=== PATIENT | male | born 1985 | race Caucasian/White ===

== ENCOUNTER 2024-09-28 17:20 | Inpatient (IN) | payer OTHER ==
[~2024-09-28] VITALS: Ht 188 cm; Wt 88.1 kg
[2024-09-28 19:13] LABS: BASOPHILS ABSOLUTE AUTO 0.03 K/mm3 (0.00-0.23); BASOPHILS PERCENT AUTO 1 % (0-2); EOSINOPHILS ABSOLUTE AUTO 0.25 K/mm3 (0.00-0.68); EOSINOPHILS PERCENT AUTO 9 % (0-6); Hematocrit 35.3 % (37.0-53.0); Hemoglobin 11.6 g/dL (13.5-17.5); IMMATURE GRAN ABSOLUTE AUTO 0.01 K/mm3 (0.00-0.10); IMMATURE GRAN PERCENT AUTO 0 % (0-1); LYMPHOCYTES ABSOLUTE AUTO 0.35 K/mm3 (0.84-5.20); LYMPHOCYTES PERCENT AUTO 12 % (21-46); MONOCYTES PERCENT AUTO 10 % (4-13); Mean Corpuscular HGB 27.6 pg (26.0-34.0); Mean Corpuscular HGB Conc 32.9 g/dL (31.5-36.5); Mean Corpuscular Volume 84 fL (80-100); Mean Platelet Volume 10.4 fL (9.1-12.4); NEUTROPHILS ABSOLUTE AUTO 1.98 K/mm3 (1.96-9.15); NEUTROPHILS PERCENT AUTO 68 % (41-73); Platelet Count 106 K/mm3 (150-400); RDW Coefficient Variation 15.9 % (11.7-14.2); RDW Standard Deviation 48.9 fL (35.1-46.3); White Blood Cell Count 2.92 K/mm3 (4.00-11.30)
[2024-09-28 19:35] LABS: Albumin, Blood 3.1 g/dL (3.4-5.0); Albumin/Globulin Ratio 0.7 (0.8-1.8); Bilirubin, Total 2.3 mg/dL (0.1-1.0); Bun/Creatinine Ratio 14.2 (12.0-20.0); Calcium, Blood 8.5 mg/dL (8.5-10.1); Creatinine, Blood 0.92 mg/dL (0.60-1.20); Globulin, Blood 4.4 g/dL (2.2-4.0); Total Protein, Blood 7.5 g/dL (6.4-8.2)
[2024-09-28] MEDS ORDERED: Clindamycin 900mg in D5W 50ML 50 ML IV ONE (22:35)
[2024-09-28] MEDS ORDERED: Furosemide 10 MG/ML 4ML Vial IV ONE (22:35)
[2024-09-28] MEDS ORDERED: Linezolid 600MG/Iso-Dext 300ML 300 ML IV ONE (22:45)
[2024-09-28] MEDS ORDERED: Piperacillin/Tazobactam Sod 3.375 GM in NS 100 ML IV ONE (22:45)
[2024-09-28] MEDS ORDERED: HYDROmorphone HCl/Pf 1MG SYR IV ONE (23:05)
[2024-09-28 23:46] LABS: Source, Urine Clean Catch
[2024-09-28 23:48] LABS: Bilirubin, Urine Neg (Neg); Blood, Urine Neg (Neg); Glucose Qualitative, Urine Neg (Neg); Ketones, Urine Neg (Neg); Leukocyte Esterase, Urine Neg (Neg); Nitrite, Urine Neg (Neg); Protein, Urine Neg (Neg); Urobilinogen, Urine 1+ (Normal)
[2024-09-29 00:28] LABS: Appearance, Urine Clear (Clear); Color, Urine Pale Yellow (P-Yellow)
[2024-09-29] MEDS ORDERED: Potassium Chloride 20 MEQ TabCR PO ONE (01:00)
[2024-09-29 01:30] LABS: BASOPHILS ABSOLUTE AUTO 0.03 K/mm3 (0.00-0.23); BASOPHILS PERCENT AUTO 1 % (0-2); EOSINOPHILS ABSOLUTE AUTO 0.26 K/mm3 (0.00-0.68); EOSINOPHILS PERCENT AUTO 10 % (0-6); Hematocrit 35.8 % (37.0-53.0); Hemoglobin 11.6 g/dL (13.5-17.5); IMMATURE GRAN ABSOLUTE AUTO 0.01 K/mm3 (0.00-0.10); IMMATURE GRAN PERCENT AUTO 0 % (0-1); LYMPHOCYTES ABSOLUTE AUTO 0.36 K/mm3 (0.84-5.20); LYMPHOCYTES PERCENT AUTO 14 % (21-46); MONOCYTES ABSOLUTE AUTO 0.41 K/mm3 (0.16-1.47); MONOCYTES PERCENT AUTO 16 % (4-13); Mean Corpuscular HGB 27.3 pg (26.0-34.0); Mean Corpuscular HGB Conc 32.4 g/dL (31.5-36.5); Mean Corpuscular Volume 84 fL (80-100); Mean Platelet Volume 10.1 fL (9.1-12.4); NEUTROPHILS ABSOLUTE AUTO 1.56 K/mm3 (1.96-9.15); NEUTROPHILS PERCENT AUTO 59 % (41-73); Platelet Count 100 K/mm3 (150-400); RDW Coefficient Variation 15.9 % (11.7-14.2); RDW Standard Deviation 49.2 fL (35.1-46.3); Red Blood Cell Count 4.25 M/mm3 (4.30-5.90); White Blood Cell Count 2.63 K/mm3 (4.00-11.30)
[2024-09-29 01:48] LABS: Albumin/Globulin Ratio 0.7 (0.8-1.8); Bun/Creatinine Ratio 11.9 (12.0-20.0); C-REACTIVE PROTEIN, EXT RANGE 1.06 mg/dL (0.000-0.300); Calcium, Blood 8.4 mg/dL (8.5-10.1); Creatinine, Blood 1.01 mg/dL (0.60-1.20); Globulin, Blood 4.2 g/dL (2.2-4.0); Magnesium, Blood 1.9 mg/dL (1.6-2.4); Total Protein, Blood 7.2 g/dL (6.4-8.2)
[2024-09-29] MEDS ORDERED: Piperacillin/Tazobactam Sod 3.375 GM in NS 100 ML IV SCH (06:00)
[2024-09-29] MEDS ORDERED: Furosemide 10 MG/ML 4ML Vial IV SCH (09:00)
[2024-09-29] MEDS ORDERED: Enoxaparin 40 MG/0.4 ML SYR SC SCH (09:00)
[2024-09-29] MEDS ORDERED: AMPDEX5 PO (09:24)
[2024-09-29] MEDS ORDERED: TADA10TA PO (09:25)
[2024-09-29] MEDS ORDERED: TRAZ50 PO (09:25)
[2024-09-29] MEDS ORDERED: ALDACTONE100 MG PO (09:25)
[2024-09-29] MEDS ORDERED: PANT40 PO (09:25)
[2024-09-29] MEDS ORDERED: CONSTULOSE10 GM/152 PO (09:26)
[2024-09-29] MEDS ORDERED: CARV3.125 PO (09:26)
[2024-09-29] MEDS ORDERED: GABA300 PO (09:26)
[2024-09-29] MEDS ORDERED: FURO40 PO (09:26)
[2024-09-29] MEDS ORDERED: AMIL5 PO (09:27)
[2024-09-29] MEDS ORDERED: Linezolid 600MG/Iso-Dext 300ML 300 ML IV SCH (10:30)
[2024-09-29] MEDS ORDERED: Spironolactone 50 MG Tab PO SCH (12:00)
[2024-09-29] MEDS ORDERED: AMILORIDE HCL 5 MG PO SCH (12:00)
[2024-09-29] MEDS ORDERED: HYDROcodone 5-APAP 325 TAB PO PRN (12:55)
[2024-09-29] MEDS ORDERED: CeFAZolin Sodium 2,000 MG in NS 100 ML IV SCH (14:00)
[2024-09-29 14:27] VITALS: BP 109/66
[2024-09-29 15:38] LABS: Albumin, Blood 2.8 g/dL (3.4-5.0)
[2024-09-29 15:56] VITALS: BP 93/63
[2024-09-29] MEDS ORDERED: Lactulose 20 GM/30 ML UDC PO SCH (16:00)
[2024-09-29] MEDS ORDERED: Carvedilol 3.125 MG Tab PO SCH (17:00)
--- NOTE | 2024-09-29 19:08 | NUR ---
SHIFT SUMMARY DAY NEW ER ADMIT THIS SHIFT, A&OX3, DROWSEY SINCE ASSUMING CARE FALLING ASLEEP MID SENTENCE. BP'S SOFT, PT HAS BEEN COOPERATIVE BUT BECOMES EASILY AGGITATED, MEDICATED FOR PAIN X1. SLEEPING AT THIS TIME, CALL LIGHT IN REACH.
[2024-09-29 19:52] VITALS: BP 97/72
[2024-09-29] MEDS ORDERED: Gabapentin 300 MG Cap PO SCH (21:00)
[2024-09-29] MEDS ORDERED: TraZODone HCl 50 MG Tab PO SCH (21:00)
[2024-09-29] MEDS ORDERED: Amphet Asp/Amphet/D-Amphet 5 MG Tab PO SCH (21:00)
[2024-09-29] MEDS ORDERED: NS 250 ML IV PRN (21:30)
--- NOTE | 2024-09-30 03:04 | NUR ---
SHIFT SUMMARY NO ACUTE EVENTS DURING THIS SHIFT. IV ABX INFUSED ORDERED. PT DROUSY, EASILY AROUSABLE, LABILE. A/OX4. PT DENIED HS SCHEDULED TRAZADONE. PT DENIES PAIN AT HS. SLEEPY. LE'S ELEVATED IN BED, ABBEY.WHEEPING NOTED. PT AMBULATES INDEPENDENTLY TO THE RESTROOM. MOSTLY COOPERATIVE WITH CARE. BED AT THE LOWEST POSITION, CALL LIGHT W/I REACH. PT IS ABLE TO MAKE HIS NEEDS KNOWN.
[2024-09-30 05:14] VITALS: BP 107/77
[2024-09-30 05:50] LABS: Hematocrit 36.2 % (37.0-53.0); Hemoglobin 11.7 g/dL (13.5-17.5); Mean Corpuscular HGB 27.7 pg (26.0-34.0); Mean Corpuscular HGB Conc 32.3 g/dL (31.5-36.5); Mean Corpuscular Volume 86 fL (80-100); Mean Platelet Volume 10.2 fL (9.1-12.4); Platelet Count 109 K/mm3 (150-400); RDW Coefficient Variation 15.9 % (11.7-14.2); RDW Standard Deviation 50.4 fL (35.1-46.3); Red Blood Cell Count 4.23 M/mm3 (4.30-5.90); White Blood Cell Count 3.39 K/mm3 (4.00-11.30)
[2024-09-30] MEDS ORDERED: Pantoprazole Sodium 40 MG Tab PO SCH (06:00)
[2024-09-30 07:28] LABS: Bun/Creatinine Ratio 14.9 (12.0-20.0); Calcium, Blood 8.6 mg/dL (8.5-10.1); Creatinine, Blood 1.01 mg/dL (0.60-1.20); Potassium, Blood 3.9 mmol/L (3.5-5.5)
[2024-09-30 07:43] VITALS: BP 112/83
[2024-09-30] MEDS ORDERED: Furosemide 10 MG/ML 4ML Vial IV SCH (09:00)
[2024-09-30 11:52] LABS: International Normalized Ratio 1.16; Prothrombin Time Results 12.6 Sec (9.7-11.5)
--- NOTE | 2024-09-30 16:20 | NUR ---
SHIFT NOTE CLIENT IS A&O X4. REFUSED LACTULOSE X 1. HAD 1 EPOSODE OF EMISIS. IV ABT CONTINUES FOR CELLULITIS. CLIENT HAS SLEPT MOST OF SHIFT. BED IN LOW POSITION AND CALL LIGHT IS WITHIN REACH
[2024-09-30 16:45] VITALS: BP 105/80
--- NOTE | 2024-09-30 19:14 | NUR ---
NEW T-ORDER FROM ON-CALL HOSPITALIST DR. HITCHCOCK: ZOFRAN IV 4MG Q6HRS PRN. ENTERED TO [employer], SEE EMAR.
[2024-09-30] MEDS ORDERED: Ondansetron HCl 2 MG / ML 2ML Vial IV PRN (19:15)
[2024-09-30 19:25] VITALS: BP 112/83
--- NOTE | 2024-10-01 03:13 | NUR ---
SHIFT SUMMARY NO ACUTE EVENTS DURING THIS SHIFT. PT C/O N/V AT HS. NEW ORDER FOR IV ZOFRAN RECEIVED FROM THE ON-CALL HOSPITALIST. ADMINISTERED WITH GOOD EFFECTIVNESS. PT REFUSED SOME OF HIS SCHEDULED HS MEDICATIONS D/T ABDOMINAL PAIN. REFUSED LACTULOSE WELL. PT REPORTS HAVING DIARRHEA D/T LACTULOSE. MEDICATED WITH PRN NORCO X1 FOR C/O ABD PAIN. IV ABX INFUSED ORDERED. PT'S FATHER AND FRIENDS BY THE BEDSIDE AT HS. BED AT THE LOWEST POSITION, CALL LIGHT W/I REACH. PT IS A/OX4, ABLE TO MAKE HIS NEEDS KNOWN AND COOPERATIVE WITH CARE DURING THIS SHIFT. BILATERAL LE'S ABBEY, ELEVATED IN BED. PT REPORTS IMPROVEMENT ON CELLULITIS AND EDEMA. EDEMA +3 BILATERALLY. WHEEPING.
[2024-10-01 04:10] VITALS: BP 118/88
[2024-10-01 06:09] LABS: Hematocrit 40.1 % (37.0-53.0); Hemoglobin 12.6 g/dL (13.5-17.5); Mean Corpuscular HGB 27.6 pg (26.0-34.0); Mean Corpuscular HGB Conc 31.4 g/dL (31.5-36.5); Mean Corpuscular Volume 88 fL (80-100); Mean Platelet Volume 11.3 fL (9.1-12.4); Platelet Count 100 K/mm3 (150-400); RDW Coefficient Variation 15.8 % (11.7-14.2); RDW Standard Deviation 50.9 fL (35.1-46.3); Red Blood Cell Count 4.56 M/mm3 (4.30-5.90)
[2024-10-01 06:50] LABS: Bun/Creatinine Ratio 19.7 (12.0-20.0); Calcium, Blood 8.4 mg/dL (8.5-10.1); Creatinine, Blood 0.76 mg/dL (0.60-1.20); Potassium, Blood 3.9 mmol/L (3.5-5.5)
[2024-10-01 07:59] VITALS: BP 128/90
--- NOTE | 2024-10-01 08:14 | NUR ---
MD CONTACT CALLED DR. ROCA TO NOTIFY PATIENT WITH NAUSEA WITHOUT RELIEF WITH ZOFRAN ADMINISTRATION. MD STATED WOULD ORDER PHENERGAN.
[2024-10-01] MEDS ORDERED: Prochlorperazine Edisylate 10 mg Vial IV ONE (09:00)
[2024-10-01] MEDS ORDERED: Prochlorperazine Edisylate 10 mg Vial IV PRN (09:00)
[2024-10-01 15:34] VITALS: BP 119/84
--- NOTE | 2024-10-01 18:42 | NUR ---
SHIFT SUMMARY PATIENT A/OX3, ABLE TO MAKE NEEDS KNOWN. COOPERATIVE WITH CARE. PATIENT DENIES NEED FOR PAIN MEDICATION TODAY, COM,PLAINING OF NAUSEA, MEDICATED PER MAR. NO EPISODES OF EMESIS. PATIENT ALSO COMPLAIONING OF DIARRHEA, LACTULOSE HELD X2 THIS MORNING. THIS EVENINGS DOSE ADMINISTERED PER MAR. PATIENT'S FRIEND, RAQUEL, CAME TO BEDSIDE REQUESTING CALL FROM [facility]. CASE MANAGEMENT INFORMED. PATIENT SLEEPING MOST OF SHIFT TODAY AND WITH MINIMAL PO INTAKE AT MEALTIMES. COTNINUES WITH DIURESIS AND 2-3+ EDMEMA TO BLE. NO OTHER CONCERNS AT THIS TIME.
[2024-10-01 19:51] VITALS: BP 118/84
[2024-10-01] MEDS ORDERED: Lactobacil 2-S.Thermo-Bifido 1 1 Cap PO SCH (21:00)
--- NOTE | 2024-10-02 03:37 | NUR ---
SHIFT SUMMARY NO ACUTE EVENTS DURING THIS SHIFT. PT REFUSED HS MEDICATIONS. REPORTED DIARRHEA. PT REMAINS SLEEPY, AROUSABLE. LE'S ELEVATED WITH PILLOW, EDEMA BILATERALLY +2, NO WHEEPING NOTED. PT HAD A SNACK DURING THE NIGHT HRS, TOLERATED WELL. PT DENIES N/V DURING THIS SHIFT. BED AT THE LOWEST POSITION, CALL LIGHT WITHIN REACH. PT IS ABLE TO MAKE HIS NEEDS KNOWN AND IS COOPERATIVE WITH CARE. IV ABX'S INFUSED ORDERED.
[2024-10-02 04:59] VITALS: BP 118/89
[2024-10-02 07:00] VITALS: BP 126/84
[2024-10-02 08:45] LABS: Bun/Creatinine Ratio 15.7 (12.0-20.0); Calcium, Blood 8.9 mg/dL (8.5-10.1); Creatinine, Blood 0.83 mg/dL (0.60-1.20); Potassium, Blood 4.2 mmol/L (3.5-5.5)
[2024-10-02] MEDS ORDERED: AMOCLA875 PO (12:16)
[2024-10-02] MEDS ORDERED: VISBIOME 112.51 EACH PO (12:17)
--- NOTE | 2024-10-02 13:37 | NUR ---
DISCHARGE PT DISCHARGED HOME WITH FRIEND VIA WHEELCHAIR. ALL BELONGINGS WITH PT, EDUCATION PROVIDED, ALL QUESTIONS ANSWERED.
[2024-10-10] MEDS ORDERED: LACT10SY PO (11:28)
[2024-10-10] MEDS ORDERED: LACT PO (11:29)
[2024-10-10] MEDS ORDERED: AMOCLA500 PO (11:29)
== END 2024-10-02 13:08 | disposition home or self-care (01) | DRG 872 ==
LOC: ER 17:20 → ERHOLD 17:21 → MEDS 09-29 14:19 → ENPENDDIS 10-02 10:30 → MEDS 10-02 13:08
PROVIDERS: Family Medicine; Internal Medicine; Student in an Organized Health Care Education/Training Program; ADMIT Student in an Organized Health Care Education/Training Program
DX: A41.9 Sepsis, unspecified organism (principal); L03.115 Cellulitis of right lower limb; L03.116 Cellulitis of left lower limb; R18.8 Other ascites; D61.818 Other pancytopenia; E87.70 Fluid overload, unspecified; K74.60 Unspecified cirrhosis of liver; K76.82 Hepatic encephalopathy; D63.8 Anemia in other chronic diseases classified elsewhere; E87.6 Hypokalemia; K72.10 Chronic hepatic failure without coma; T50.1X6A Underdosing of loop [high-ceiling] diuretics, initial encounter; R19.7 Diarrhea, unspecified; S80.822A Blister (nonthermal), left lower leg, initial encounter; S80.821A Blister (nonthermal), right lower leg, initial encounter; X58.XXXA Exposure to other specified factors, initial encounter; Z91.138 Patient's unintentional underdosing of medication regimen for other reason; Z88.8 Allergy status to other drugs, medicaments and biological substances
CPT/HCPCS: 36415; 71046; 73590; 76705; 80048; 80053; 81003; 82040; 82140; 83605; 83615; 83735; 83880; 84145; 85025; 85027; 85610; 85651; 86140; 87040; 93005; 93010; 96365; 96366; 96367; 96372; 96375; 96376; 99285-25; A9270; G0378; J0690; J0780; J1171; J1650; J1938; J2020; J2405; J2543

== ENCOUNTER 2024-10-19 21:18 | Observation (INO) | payer OTHER ==
[~2024-10-19] VITALS: Ht 188 cm; Wt 81.7 kg
[~2024-10-19 21:18] MED LIST: ALDACTONE100 MG PO; AMIL5 PO; AMOCLA500 PO; AMOCLA875 PO; AMPDEX5 PO; CARV3.125 PO; CONSTULOSE10 GM/152 PO; FURO40 PO; GABA300 PO; LACT PO; LACT10SY PO; PANT40 PO; TADA10TA PO; TRAZ50 PO; VISBIOME 112.51 EACH PO
[2024-10-19 22:07] LABS: BASOPHILS ABSOLUTE AUTO 0.04 K/mm3 (0.00-0.23); BASOPHILS PERCENT AUTO 1 % (0-2); EOSINOPHILS ABSOLUTE AUTO 0.23 K/mm3 (0.00-0.68); EOSINOPHILS PERCENT AUTO 5 % (0-6); Hematocrit 35.1 % (37.0-53.0); IMMATURE GRAN ABSOLUTE AUTO 0.02 K/mm3 (0.00-0.10); IMMATURE GRAN PERCENT AUTO 0 % (0-1); LYMPHOCYTES ABSOLUTE AUTO 0.58 K/mm3 (0.84-5.20); LYMPHOCYTES PERCENT AUTO 13 % (21-46); MONOCYTES ABSOLUTE AUTO 0.45 K/mm3 (0.16-1.47); MONOCYTES PERCENT AUTO 10 % (4-13); Mean Corpuscular HGB 28.2 pg (26.0-34.0); Mean Corpuscular HGB Conc 34.2 g/dL (31.5-36.5); Mean Corpuscular Volume 82 fL (80-100); Mean Platelet Volume 10.4 fL (9.1-12.4); NEUTROPHILS ABSOLUTE AUTO 3.25 K/mm3 (1.96-9.15); NEUTROPHILS PERCENT AUTO 71 % (41-73); Platelet Count 128 K/mm3 (150-400); Red Blood Cell Count 4.26 M/mm3 (4.30-5.90); White Blood Cell Count 4.57 K/mm3 (4.00-11.30)
[2024-10-19 22:23] LABS: Alanine Aminotransfer (ALT/SGP 76 U/L (12-78); Albumin, Blood 3.2 g/dL (3.4-5.0); Albumin/Globulin Ratio 0.7 (0.8-1.8); Alk Phos 444 U/L (50-136); Anion Gap 11 mmol/L (3-11); Aspartate Aminotrans (AST/SGOT 72 U/L (12-37); Bilirubin, Total 2.9 mg/dL (0.1-1.0); Blood Urea Nitrogen 15 mg/dL (8-24); Bun/Creatinine Ratio 14.6 (12.0-20.0); CO2, Blood 27 mmol/L (21-32); Calcium, Blood 9.1 mg/dL (8.5-10.1); Chloride, Blood 98 mmol/L (98-108); Creatinine, Blood 1.03 mg/dL (0.60-1.20); Globulin, Blood 4.9 g/dL (2.2-4.0); Glomerular Filtration Rate 95 (60-); Glucose, Blood 97 mg/dL (70-99); Potassium, Blood 3.7 mmol/L (3.5-5.5); Sodium, Blood 132 mmol/L (136-145); Total Protein, Blood 8.1 g/dL (6.4-8.2)
[2024-10-19] MEDS ORDERED: CefTRIAXone Sodium 1,000 MG in NS 50 ML IV ONE (22:35)
[2024-10-19] MEDS ORDERED: DiphenhydrAMINE HCl 50 MG/ML 1ML Vial IV ONE (22:40)
[2024-10-19] MEDS ORDERED: Prochlorperazine Edisylate 10 mg Vial IV ONE (22:40)
[2024-10-19 22:57] LABS: International Normalized Ratio 1.14; Prothrombin Time Results 12.4 Sec (9.7-11.5)
[2024-10-19 22:59] LABS: Acetaminophen, Random <2.0 ug/mL (10.0-30.0); Salicylate <1.7 mg/dL (2.8-20.0)
[2024-10-20] MEDS ORDERED: CEPH500 PO ×2 (05:32→15:06)
[2024-10-20] MEDS ORDERED: AMILORIDE HCL5 M7 PO (05:36)
[2024-10-20] MEDS ORDERED: SPIRONOLACTONE50 MG PO (05:36)
== END 2024-10-20 16:42 | disposition home or self-care (01) ==
LOC: ER 21:18 → EOR 21:19
PROVIDERS: Student in an Organized Health Care Education/Training Program; ADMIT Emergency Medicine
DX: L03.116 Cellulitis of left lower limb (principal); L03.115 Cellulitis of right lower limb; I89.0 Lymphedema, not elsewhere classified; F32.9 Major depressive disorder, single episode, unspecified; Z88.8 Allergy status to other drugs, medicaments and biological substances; Z79.899 Other long term (current) drug therapy
CPT/HCPCS: 36415; 71046; 80053; 82140; 83605; 83690; 84484; 85025; 85610; 85730; 87040; 93005; 93010; 93970; 96374; 96375; 99285-25; G0378; G0480; J0696; J0780; J1200

== ENCOUNTER 2024-12-31 02:36 | Emergency (ER) | payer OTHER ==
[~2024-12-31] VITALS: Ht 188 cm; Wt 93.0 kg
[~2024-12-31 02:36] MED LIST changes: +AMILORIDE HCL5 M7 PO; +CEPH500 PO; +SPIRONOLACTONE50 MG PO
[2024-12-31] MEDS ORDERED: Atarax10 MG PO (03:50)
[2024-12-31] MEDS ORDERED: SILDENAFIL CIT100 MG PO (03:50)
[2024-12-31 04:01] LABS: BASOPHILS ABSOLUTE AUTO 0.05 K/mm3 (0.00-0.23); BASOPHILS PERCENT AUTO 1 % (0-2); EOSINOPHILS ABSOLUTE AUTO 0.25 K/mm3 (0.00-0.68); EOSINOPHILS PERCENT AUTO 7 % (0-6); Hematocrit 32.9 % (37.0-53.0); Hemoglobin 11.0 g/dL (13.5-17.5); IMMATURE GRAN ABSOLUTE AUTO 0.04 K/mm3 (0.00-0.10); IMMATURE GRAN PERCENT AUTO 1 % (0-1); LYMPHOCYTES ABSOLUTE AUTO 0.40 K/mm3 (0.84-5.20); LYMPHOCYTES PERCENT AUTO 11 % (21-46); MONOCYTES ABSOLUTE AUTO 0.45 K/mm3 (0.16-1.47); MONOCYTES PERCENT AUTO 12 % (4-13); Mean Corpuscular HGB Conc 33.4 g/dL (31.5-36.5); Mean Corpuscular Volume 88 fL (80-100); NEUTROPHILS ABSOLUTE AUTO 2.59 K/mm3 (1.96-9.15); NEUTROPHILS PERCENT AUTO 69 % (41-73); NRBC ABSOLUTE 0.00 K/mm3 (0.00-0.02); NRBC Auto 0.0 /100 WBC (0.0-0.2); Platelet Count 84 K/mm3 (150-400); RDW Coefficient Variation 14.6 % (11.7-14.2); RDW Standard Deviation 47.0 fL (35.1-46.3)
[2024-12-31 06:10] LABS: Alanine Aminotransfer (ALT/SGP 31.0 U/L (12-78); Albumin, Blood 3.0 g/dL (3.4-5.0); Albumin/Globulin Ratio 0.8 (0.8-1.8); Anion Gap 10.0 mmol/L (3-11); Aspartate Aminotrans (AST/SGOT 31.0 U/L (12-37); Bilirubin, Total 1.7 mg/dL (0.1-1.0); Blood Urea Nitrogen 16.0 mg/dL (8-24); CO2, Blood 24.0 mmol/L (21-32); Calcium, Blood 8.7 mg/dL (8.5-10.1); Chloride, Blood 102.0 mmol/L (98-108); Creatinine, Blood 1.03 mg/dL (0.60-1.20); Globulin, Blood 3.9 g/dL (2.2-4.0); Glucose, Blood 102.0 mg/dL (70-99); Potassium, Blood 3.8 mmol/L (3.5-5.5); Sodium, Blood 132.0 mmol/L (136-145); Total Protein, Blood 6.9 g/dL (6.4-8.2)
== END 2024-12-31 05:05 | disposition home or self-care (01) ==
LOC: ER 02:36
PROVIDERS: Emergency Medicine
DX: M79.89 Other specified soft tissue disorders (principal); Z88.8 Allergy status to other drugs, medicaments and biological substances; Z79.899 Other long term (current) drug therapy; Z59.89 Other problems related to housing and economic circumstances
CPT/HCPCS: 80053; 85025; 99283

== ENCOUNTER 2025-01-30 00:55 | Inpatient (IN) | payer OTHER ==
[~2025-01-30] VITALS: Ht 188 cm; Wt 96.8 kg
[2025-01-30] VITALS (35 sets, daily range): BP systolic 84–110; BP diastolic 61–92
[~2025-01-30 00:55] MED LIST changes: +Atarax10 MG PO; +SILDENAFIL CIT100 MG PO
[2025-01-30 02:15] LABS: Alanine Aminotransfer (ALT/SGP 27.0 U/L (12-78); Albumin, Blood 3.1 g/dL (3.4-5.0); Albumin/Globulin Ratio 0.7 (0.8-1.8); Anion Gap 11.0 mmol/L (3-11); Aspartate Aminotrans (AST/SGOT 29.0 U/L (12-37); Bilirubin, Total 4.4 mg/dL (0.1-1.0); Blood Urea Nitrogen 12.0 mg/dL (8-24); CO2, Blood 26.0 mmol/L (21-32); Calcium, Blood 8.6 mg/dL (8.5-10.1); Chloride, Blood 96.0 mmol/L (98-108); Creatinine, Blood 0.81 mg/dL (0.60-1.20); Globulin, Blood 4.3 g/dL (2.2-4.0); Glucose, Blood 132.0 mg/dL (70-99); Potassium, Blood 3.5 mmol/L (3.5-5.5); Sodium, Blood 129.0 mmol/L (136-145); Total Protein, Blood 7.4 g/dL (6.4-8.2)
[2025-01-30] MEDS ORDERED: Ketorolac Tromethamine 15mg Vial IV ONE ×2 (02:25→06:40)
[2025-01-30 02:33] LABS: BASOPHILS ABSOLUTE AUTO 0.06 K/mm3 (0.00-0.23); BASOPHILS PERCENT AUTO 1 % (0-2); EOSINOPHILS ABSOLUTE AUTO 0.19 K/mm3 (0.00-0.68); EOSINOPHILS PERCENT AUTO 2 % (0-6); Hematocrit 34.4 % (37.0-53.0); Hemoglobin 11.9 g/dL (13.5-17.5); IMMATURE GRAN ABSOLUTE AUTO 0.09 K/mm3 (0.00-0.10); IMMATURE GRAN PERCENT AUTO 1 % (0-1); LYMPHOCYTES ABSOLUTE AUTO 0.51 K/mm3 (0.84-5.20); LYMPHOCYTES PERCENT AUTO 5 % (21-46); MONOCYTES ABSOLUTE AUTO 0.93 K/mm3 (0.16-1.47); MONOCYTES PERCENT AUTO 10 % (4-13); Mean Corpuscular HGB Conc 34.6 g/dL (31.5-36.5); Mean Corpuscular Volume 83 fL (80-100); NEUTROPHILS ABSOLUTE AUTO 7.67 K/mm3 (1.96-9.15); NEUTROPHILS PERCENT AUTO 81 % (41-73); NRBC ABSOLUTE 0.00 K/mm3 (0.00-0.02); NRBC Auto 0.0 /100 WBC (0.0-0.2); Platelet Count 150 K/mm3 (150-400); RDW Coefficient Variation 13.8 % (11.7-14.2); RDW Standard Deviation 41.8 fL (35.1-46.3)
[2025-01-30 02:37] LABS: Magnesium, Blood 2.1 mg/dL (1.6-2.4)
[2025-01-30 03:03] LABS: Source, Urine Clean Catch
[2025-01-30 03:12] LABS: Glucose Qualitative, Urine Neg (Neg); Ketones, Urine Neg (Neg); Leukocyte Esterase, Urine Neg (Neg); Protein, Urine 1+ (Neg); Specific Gravity, Urine 1.010 (1.003-1.022); Urobilinogen, Urine 4+ (Normal)
[2025-01-30 03:41] LABS: U Amphetamine Screen DETECTED; U Barbiturate Screen Not Detected; U Benzodiazapine Screen Not Detected; U Buprenorphine Screen Not Detected; U Cannabinoids Screen Not Detected; U Cocaine Screen Not Detected; U Methadone Screen Not Detected; U Methamphetamine Screen Not Detected; U Opiates Screen Not Detected; U Oxycodone Screen Not Detected; U Phencyclidine Screen Not Detected
[2025-01-30 03:42] LABS: Bilirubin, Urine 1+ (Neg); Color, Urine Amber (P-Yellow)
[2025-01-30] MEDS ORDERED: Diazepam 5 MG / ML 2ML SYR IV ONE (04:35)
[2025-01-30 04:37] LABS: Influenza A, PCR NEGATIVE (NEGATIVE); Influenza B, PCR NEGATIVE (NEGATIVE); Resp Syncytial Virus, PCR NEGATIVE (NEGATIVE)
[2025-01-30 05:15] LABS: SARS-Cov-2 (COVID-19) PCR, MMC POSITIVE (NEGATIVE)
[2025-01-30] MEDS ORDERED: Morphine Sulfate 4 MG/1 ML Injection IV ONE (05:20)
[2025-01-30] MEDS ORDERED: Albumin (Human) 25gm/100ml 100 ML IV ONE (05:35)
[2025-01-30] MEDS ORDERED: NS 1,000 ML IV ONE ×3 (09:28→14:15)
[2025-01-30] MEDS ORDERED: NS 1,000 ML IV SCH (09:40)
[2025-01-30] MEDS ORDERED: Piperacillin/Tazobactam Sod 4.5 GM in NS 100 ML IV ONE (10:10)
[2025-01-30] MEDS ORDERED: FLU VACC TS2025-26(6MOS UP)/PF 45 MCG/0.5 ML SYRINGE IM SCH (12:50)
[2025-01-30] MEDS ORDERED: Vasopressin 20 UNITS in NS 100 ML IV SCH (13:05)
[2025-01-30] MEDS ORDERED: Vancomycin (Pharmacy Consult) IV SCH (13:10)
[2025-01-30] MEDS ORDERED: Albumin (Human) 25gm/100ml 100 ML IV SCH ×2 (13:45→16:55)
[2025-01-30 13:46] LABS: pH Blood Venous 7.32 (7.34-7.37)
[2025-01-30] MEDS ORDERED: NS 250 ML IV PRN (14:10)
[2025-01-30 14:36] LABS: pH Blood Venous 7.23 (7.34-7.37)
[2025-01-30] MEDS ORDERED: Meropenem 2,000 MG in NS 250 ML IV SCH (16:00)
--- NOTE | 2025-01-30 19:16 | NUR ---
Summary. Pt arrived to ICU alert and oriented. R/IJ central line in place. Initially titrations, levophed 30, phenylephrine 30, vasopressin 0.04. Pt on RA, c/o mild pain in chest/abdomen. Dr Pollock and Dr Bradley at bedside for evaluation. Pt independent in bed with call light, able to use all bed controls and communicate needs easily. At approximately 1735, this RN discovered the levophed concentration was incorrectly programmed as 64 mcg/ml instead of 16 mcg/ml from ER. Dr Bradley and Dr Pollock notified, phenylephrine and vasopressin discontinued and levophed concentration corrected with new dose at 8 mcg/ml. Pt notified of event, no adverse reaction noted from change. Pt up to bedside commode without difficulty late in shift. Able to ambulate independently with assistance for cords/lines. No other events this afternoon, see chart for further details.
[2025-01-31] VITALS (18 sets, daily range): BP systolic 78–119; BP diastolic 58–93
[2025-01-31] MEDS ORDERED: Ondansetron HCl 2 MG / ML 2ML Vial IV PRN (03:30)
[2025-01-31 03:52] LABS: Hematocrit 32.5 % (37.0-53.0); Hemoglobin 10.9 g/dL (13.5-17.5); IMMATURE RETIC FRACTION 14.70 % (2.3-16.0); Mean Corpuscular HGB Conc 33.5 g/dL (31.5-36.5); Mean Corpuscular Volume 86 fL (80-100); NRBC ABSOLUTE 0.00 K/mm3 (0.00-0.02); NRBC Auto 0.0 /100 WBC (0.0-0.2); Platelet Count 81 K/mm3 (150-400); RDW Coefficient Variation 14.9 % (11.7-14.2); RDW Standard Deviation 46.8 fL (35.1-46.3); RETIC HGB EQUIVALENT 32.20 pg (28.20-36.60); RETICULOCYTE ABSOLUTE 0.0815 M/mm3 (0.0200-0.1100); RETICULOCYTE COUNT PERCENT 2.15 % (0.50-2.50)
[2025-01-31 04:14] LABS: BAND PERCENT MAN 36 % (0-8); BASOPHILS ABSOLUTE MAN 0.00 K/mm3 (0.00-0.23); BASOPHILS PERCENT MAN 0 % (0-2); EOSINOPHILS ABSOLUTE MAN 0.00 K/mm3 (0.00-0.68); EOSINOPHILS PERCENT MAN 0 % (0-6); METAMYELOCYTE ABSOLUTE MAN 0.57 K/mm3 (0.00-0.00); METAMYELOCYTE PERCENT MAN 2 % (0-0); MONOCYTES ABSOLUTE MAN 0.28 K/mm3 (0.16-1.47); MONOCYTES PERCENT MAN 1 % (4-13); MYELOCYTE ABSOLUTE MAN 0.57 K/mm3 (0.00-0.00); MYELOCYTE PERCENT MAN 2 % (0-0); NEUTROPHILS ABSOLUTE MAN 27.18 K/mm3 (1.96-9.15); SEG NEUTROPHILS PERCENT MAN 59 % (41-73)
[2025-01-31 04:35] LABS: Ferritin, Serum 845.0 ng/mL (26-388); Total Iron Binding Capacity 182.0 ug/dL (250-450)
[2025-01-31 04:37] LABS: Alanine Aminotransfer (ALT/SGP 444.0 U/L (12-78); Albumin, Blood 3.3 g/dL (3.4-5.0); Albumin/Globulin Ratio 1.0 (0.8-1.8); Anion Gap 12.0 mmol/L (3-11); Aspartate Aminotrans (AST/SGOT 933.0 U/L (12-37); Bilirubin, Total 6.0 mg/dL (0.1-1.0); Blood Urea Nitrogen 23.0 mg/dL (8-24); CO2, Blood 22.0 mmol/L (21-32); Calcium, Blood 7.7 mg/dL (8.5-10.1); Chloride, Blood 103.0 mmol/L (98-108); Creatinine, Blood 1.2 mg/dL (0.60-1.20); Globulin, Blood 3.2 g/dL (2.2-4.0); Glucose, Blood 133.0 mg/dL (70-99); Potassium, Blood 3.7 mmol/L (3.5-5.5); Sodium, Blood 133.0 mmol/L (136-145); Total Protein, Blood 6.5 g/dL (6.4-8.2)
--- NOTE | 2025-01-31 05:15 | NUR ---
SHIFT SUMMARY PT A/OX4, COOPERATIVE WITH CARE. VSS, ON ROOM AIR. HR 80-90'S, MAPS > 65, OFF LEVO SINCE 2229. PT ABLE TO WALK TO TOILET W/ SBA FOR CORDS. HE HAS HAD 3 BMS THIS SHIFT WHICH HE REPORTS NORMAL FOR HIM. VOIDING WITHOUT ISSUE. PT HAS HAD C/O HEADACHE JAIL THROUGH SHIFT, GOT A ONE TIME ORDER FOR OXYCODONE 5MG, PT REPORTED SOME RELIEF BUT VIVAS IS STILL PRESENT. TRAZADONE ORDERED FOR SLEEP, PT WAS UP MOST OF NIGHT, FELL ASLEEP AROUND 0330. CARE MANAGEMENT ORDER PLACED R/T RECENTLY BECOMING HOMELESS, WHICH IS CAUSING HIM A GREAT DEAL OF STRESS DURING HIS ADMISSION. NO ACUTE EVENTS THIS SHIFT. CALL LIGHT IN REACH.
[2025-01-31] MEDS ORDERED: Amphet Asp/Amphet/D-Amphet 5 MG Tab PO SCH (09:00)
[2025-01-31] MEDS ORDERED: Enoxaparin 40 MG/0.4 ML SYR SC SCH (09:00)
--- NOTE | 2025-01-31 09:24 | NUR ---
SHIFT ASSESSMENT PT A&OX4, PLEASANT, FOLLOWING COMMANDS, AMBULATES WITH SBA TO MANAGE CORDS. DENIES HEADACHE AT THIS TIME. MAINLY C/O GENERAL MALAISE WHICH PATIENTS STATES THATS HOW HE NORMALLY FEELS. REMAINS OFF OF PRESSORS, MAP >65. ON RA c SATS >95%. ABD DISTENDED, PT STATES NORMAL. TOLERATING PO INTAKE. PT STATES "A COUPLE LOOSE BM'S LAST NIGHT". PT ADMITS TO BEING FORGETFUL. PTS MAIN CONCERN IS HIS HOUSING/ UNHOUSED STATUS. PT HAS A CAMPER BUT NOWHERE TO PARK. CASE MANAGEMENT CONSULTED.
[2025-01-31 10:26] LABS: Prothrombin Time Results 24.9 Sec (9.7-11.5)
[2025-01-31] MEDS ORDERED: Ampicillin Sod/Sulbactam Sod 3 GM in NS 100 ML IV SCH (16:00)
--- NOTE | 2025-01-31 18:13 | NUR ---
SHIFT SUMMARY PT REMAINS A&OX4. TOLERATING PO INTAKE, LIGHT APPETITE. DENIES CP/ SOB OR DIZZINESS WITH EXERTION. BP CONTINUES TO TREND LOW-90/69 c MAP 77 @ 1800. LEVOPHED REMAINS OFF, MIDODRINE INITIATED TODAY. NO OTHER ACUTE CHANGES TODAY.
[2025-02-01 00:11] VITALS: BP 96/55
[2025-02-01 01:19] LABS: Hematocrit 30.9 % (37.0-53.0); Hemoglobin 10.3 g/dL (13.5-17.5); Mean Corpuscular HGB Conc 33.3 g/dL (31.5-36.5); Mean Corpuscular Volume 87 fL (80-100); NRBC ABSOLUTE 0.00 K/mm3 (0.00-0.02); NRBC Auto 0.0 /100 WBC (0.0-0.2); Platelet Count 86 K/mm3 (150-400); RDW Coefficient Variation 14.8 % (11.7-14.2); RDW Standard Deviation 46.8 fL (35.1-46.3)
[2025-02-01 01:33] LABS: Alanine Aminotransfer (ALT/SGP 403.0 U/L (12-78); Albumin, Blood 2.8 g/dL (3.4-5.0); Albumin/Globulin Ratio 0.8 (0.8-1.8); Anion Gap 9.0 mmol/L (3-11); Aspartate Aminotrans (AST/SGOT 376.0 U/L (12-37); Bilirubin, Total 5.1 mg/dL (0.1-1.0); Blood Urea Nitrogen 35.0 mg/dL (8-24); CO2, Blood 25.0 mmol/L (21-32); Calcium, Blood 7.9 mg/dL (8.5-10.1); Chloride, Blood 104.0 mmol/L (98-108); Creatinine, Blood 1.02 mg/dL (0.60-1.20); Globulin, Blood 3.4 g/dL (2.2-4.0); Glucose, Blood 197.0 mg/dL (70-99); Potassium, Blood 3.8 mmol/L (3.5-5.5); Sodium, Blood 134.0 mmol/L (136-145); Total Protein, Blood 6.2 g/dL (6.4-8.2)
[2025-02-01 01:50] LABS: Vancomycin, Trough 23.9 ug/mL (5.0-10.0)
[2025-02-01 01:51] LABS: BAND PERCENT MAN 17 % (0-8); BASOPHILS ABSOLUTE MAN 0.00 K/mm3 (0.00-0.23); BASOPHILS PERCENT MAN 0 % (0-2); EOSINOPHILS ABSOLUTE MAN 0.00 K/mm3 (0.00-0.68); EOSINOPHILS PERCENT MAN 0 % (0-6); LYMPHOCYTES ABSOLUTE MAN 0.23 K/mm3 (0.84-5.20); LYMPHOCYTES PERCENT MAN 1 % (21-46); MONOCYTES ABSOLUTE MAN 0.47 K/mm3 (0.16-1.47); MONOCYTES PERCENT MAN 2 % (4-13); NEUTROPHILS ABSOLUTE MAN 22.88 K/mm3 (1.96-9.15); SEG NEUTROPHILS PERCENT MAN 80 % (41-73)
[2025-02-01 04:10] VITALS: BP 96/68
--- NOTE | 2025-02-01 06:15 | NUR ---
END OF SHIFT SUMMARY: PATIENT ALERT AND OREINT X4. REPORTS GENERALIZED DISCOMFORT BUT NO PAIN. MOVES INDEPENDENTLY IN ROOM. NSR TO MONITOR THROUGHOUT SHIFT. VS WITHIN DESIRED RANGE. ROOM AIR. TOLERATING REGULAR DIET. BM X2 THIS SHIFT -LIQUID. UNRINAL TO RUINATE. SAFETY MAINTAINED THROUGHOUT SHIFT. NO EVENTS NOTED.
[2025-02-01] MEDS ORDERED: Amphet Asp/Amphet/D-Amphet 5 MG Tab PO SCH (07:00)
[2025-02-01 08:00] VITALS: BP 88/53
--- NOTE | 2025-02-01 08:03 | NUR ---
SHIFT ASSESSMENT ASSUMED CARE OF PT @ 0700, BEDSIDE REPORT RECEIVED FROM NOC NURSE. PT RESTING COMFORTABLY, AWAKENS EASILY TO VERBAL STIMULI. A&OX4, BELTRAN EQUALLY, PLEASANT AND COOPERATIVE WITH CARE. AMBULATES TO BEDSIDE COMMODE WITHOUT ASSISTANCE, PT ENCOURAGED TO USE CALL LIGHT BUT NON COMPLIANT. DENIES CP AT THIS TIME. BP STABLE. ABDOMEN REMAINS DISTENDED WHICH PT STATES IS NORMAL. MULTIPLE LOOSE BM'S T/O THE NIGHT, DECLINING LACTULOSE. TOLERATING PO INTAKE. NO ACUTE CONCERNS THIS AM.
--- NOTE | 2025-02-01 17:46 | NUR ---
SHIFT SUMMARY PT REMAINS A&OX4, FOLLOWING COMMANDS, AMBULATING WITHOUT ASSISTANCE. BP REMAINS SOFT BUT MAP >65. PT
[2025-02-01 19:49] VITALS: BP 115/79
[2025-02-01 23:39] VITALS: BP 102/74
[2025-02-02] VITALS (10 sets, daily range): BP systolic 93–130; BP diastolic 59–95
--- NOTE | 2025-02-02 04:56 | NUR ---
SHIFT SUMMARY: PATIENT IS A&OX4. PER POTATOSOFTEY PATIENT HAS BEEN IN SINUS RHYTHM WITH HR IN THE 90'S BPM. PATIENT IS ON ROOM AIR WITH >90% SPO2. OTHER VITALS ARE STABLE AND WNL AT THIS TIME. PATIENT HAS DENIED PAIN THROUGHOUT SHIFT. HE IS VOIDING BY INDEP. AMBULATING TO THE BATHROOOM AND INTO THE URINAL. PATIENT HAS NOT HAD A BM THIS SHIFT, AND PATIENT HAS REFUSED TO TAKE HIS SCHEDULED LACTULOSE. PATIENT WAS EDUCATED ON THE IMPORTANCE OF TAKING THE LACTULOSE, PATIENT VERBALIZED UNDERSTANDING OF EDUCATION BUT CONTINUED TO REFUSE STATING "I'VE HAD MULTIPLE BM'S EARLIER TODAY AND DO NOT WANT IT STILL." PATIENT IS TOLERATING PO INTAKE WITHOUT NAUSEA/VOMITING. PRN PO TRAZADONE GIVEN PER PATIENT REQUEST DUE TO NOT BEING ABLE TO SLEEP - PATIENT ALSO REQUESTED FOR THAT MEDICATION TO BE SCHEDULED AT BEDTIME TO HELP INCREASE HIS SLEEP TIME. DR. YANEZ WAS CALLED TO HAVE THE PO TRAZADONE SCHEDULED FOR BEDTIME PER PATIENT REQUEST WELL THE POSITIVE BLOOD CULTURES THAT WERE GRAM VARIABLE BACILLI - CHANGED THE PO TRAZADONE TO SCHEDULED INSTEAD OF PRN AND NO NEW ORDERS OR CHANGE IN IV ABX DUE TO THE POSITIVE BLOOD CULTURES AT THIS TIME. IV VANCO AND UNASYN GIVEN PER JUN. PATIENT IS CURRENTLY LAYING IN BED WITH CALL LIGHT IN REACH. HE IS ABLE TO MAKE HIS NEEDS KNOWN AND CALLS APPROPRIATELY.
[2025-02-02 07:07] LABS: Hematocrit 32.0 % (37.0-53.0); Hemoglobin 10.6 g/dL (13.5-17.5); Mean Corpuscular HGB Conc 33.1 g/dL (31.5-36.5); Mean Corpuscular Volume 86 fL (80-100); NRBC ABSOLUTE 0.00 K/mm3 (0.00-0.02); NRBC Auto 0.0 /100 WBC (0.0-0.2); Platelet Count 88 K/mm3 (150-400); RDW Coefficient Variation 14.9 % (11.7-14.2); RDW Standard Deviation 46.6 fL (35.1-46.3)
[2025-02-02 07:27] LABS: Alanine Aminotransfer (ALT/SGP 262 U/L (12-78); Albumin, Blood 2.7 g/dL (3.4-5.0); Albumin/Globulin Ratio 0.8 (0.8-1.8); Anion Gap 7 mmol/L (3-11); Aspartate Aminotrans (AST/SGOT 92 U/L (12-37); Bilirubin, Total 2.6 mg/dL (0.1-1.0); Blood Urea Nitrogen 21 mg/dL (8-24); CO2, Blood 25 mmol/L (21-32); Calcium, Blood 8.4 mg/dL (8.5-10.1); Chloride, Blood 107 mmol/L (98-108); Creatinine, Blood 0.63 mg/dL (0.60-1.20); Globulin, Blood 3.3 g/dL (2.2-4.0); Glucose, Blood 153 mg/dL (70-99); Potassium, Blood 3.4 mmol/L (3.5-5.5); Sodium, Blood 136 mmol/L (136-145); Total Protein, Blood 6.0 g/dL (6.4-8.2); Vancomycin, Trough 16.3 ug/mL (5.0-10.0)
[2025-02-02 14:30] LABS: Acinetobacter baumannii DNA Not Detected copy/mL (NOT DETECT); Enterobacter cloacae DNA Not Detected copy/mL (NOT DETECT); Escherichia coli DNA Not Detected copy/mL (NOT DETECT); Haemophilus influenzae DNA Not Detected copy/mL (NOT DETECT); Klebsiella aerogenes DNA Not Detected copy/mL (NOT DETECT); Klebsiella oxytoca DNA Not Detected copy/mL (NOT DETECT); Klebsiella pneumoniae DNA Not Detected copy/mL (NOT DETECT); Moraxella catarrhalis DNA Not Detected copy/mL (NOT DETECT); Proteus sp DNA Not Detected copy/mL (NOT DETECT); Pseudomonas aeruginosa DNA Not Detected copy/mL (NOT DETECT); Serratia marcescens DNA Not Detected copy/mL (NOT DETECT); Staphylococcus aureus DNA Not Detected copy/mL (NOT DETECT); Streptococcus agalactiae DNA Not Detected copy/mL (NOT DETECT); Streptococcus pneumoniae DNA Not Detected copy/mL (NOT DETECT); Streptococcus pyogenes DNA Not Detected copy/mL (NOT DETECT)
[2025-02-02 14:31] LABS: Chlamydia pneumonia Not Detected (NOT DETECT)
[2025-02-02 14:32] LABS: Human Coronavirus RNA Not Detected (NOT DETECT); Human Metapneumovirus RNA Not Detected (NOT DETECT); Influenza virus A RNA Not Detected (NOT DETECT); Influenza virus B RNA Not Detected (NOT DETECT); Respiratory syncytial Vir RNA Not Detected (NOT DETECT); Rhinovirus+Enterovirus RNA Not Detected (NOT DETECT)
--- NOTE | 2025-02-02 18:45 | NUR ---
EOS: PATIENT IS ALERT AND ORINETED, HAVING INCREASED ABD PAIN AND DISTENTION. NOTED. SLIGHTLY TACHACARDIC, PROVIDER NOTIFIED AND ROUNDED. PLAN FOR ABD PARACENTESIS TOMORROW AM WITH LABS. PER HOSPITALIST . PATIENT VSS HAVE BEEN STABLE MIDODRINE TID. HR WAS STARTING TO INCREASE FROM UPPER 90'S TO 110'S, UP TO 140 WITH EXERTION. PATIENT OVERALL DENIES IMPROVEMENT. DENIES CARDIAC CHEST PAIN. SOME MINOR INCREASED WOB WITH EXERTION.
[2025-02-03 03:26] VITALS: BP 95/69
[2025-02-03 04:42] LABS: Hematocrit 33.3 % (37.0-53.0); Hemoglobin 11.0 g/dL (13.5-17.5); Mean Corpuscular HGB Conc 33.0 g/dL (31.5-36.5); Mean Corpuscular Volume 87 fL (80-100); NRBC ABSOLUTE 0.03 K/mm3 (0.00-0.02); NRBC Auto 0.4 /100 WBC (0.0-0.2); Platelet Count 68 K/mm3 (150-400); RDW Coefficient Variation 14.8 % (11.7-14.2); RDW Standard Deviation 46.8 fL (35.1-46.3)
[2025-02-03 04:43] LABS: Prothrombin Time Results 13.8 Sec (9.7-11.5)
--- NOTE | 2025-02-03 04:43 | NUR ---
SHIFT SUMMARY ASSUMED CARE OF PT AT APPROXIMATELY 1900. PT RESTING COMFORTABLY IN BED. INDEPENDENT IN ROOM. PT TO HAVE PARACENTESIS IN AM. HAS BEEN NPO SINCE MIDNIGHT. HOLD AM LOVENOX. PT REPORTS SOME SOB DT INCREASED ABDOMINAL DISTENTION. IMPROVEMENT WITH REPOSITIONING. NO C/O CHEST PAIN OR PRESSURE. PT WITH FLAT AFFECT. AOX4. PT TOOK SHOWER BEFORE BED THIS SHIFT. VSS. ABLE TO MAKE ALL NEEDS KNOWN. CALL LIGHT WITHIN REACH AND PT CALLS APPROPRIATELY.
[2025-02-03 05:00] LABS: Alanine Aminotransfer (ALT/SGP 217.0 U/L (12-78); Albumin, Blood 2.6 g/dL (3.4-5.0); Albumin/Globulin Ratio 0.7 (0.8-1.8); Anion Gap 7.0 mmol/L (3-11); Aspartate Aminotrans (AST/SGOT 79.0 U/L (12-37); Bilirubin, Total 3.7 mg/dL (0.1-1.0); Blood Urea Nitrogen 14.0 mg/dL (8-24); CO2, Blood 28.0 mmol/L (21-32); Calcium, Blood 8.0 mg/dL (8.5-10.1); Chloride, Blood 104.0 mmol/L (98-108); Creatinine, Blood 0.61 mg/dL (0.60-1.20); Globulin, Blood 3.5 g/dL (2.2-4.0); Glucose, Blood 98.0 mg/dL (70-99); Magnesium, Blood 1.7 mg/dL (1.6-2.4); Phosphorus, Blood 2.0 mg/dL (2.5-4.9); Potassium, Blood 3.2 mmol/L (3.5-5.5); Sodium, Blood 136.0 mmol/L (136-145); Total Protein, Blood 6.1 g/dL (6.4-8.2)
[2025-02-03 07:35] VITALS: BP 118/79
[2025-02-03] MEDS ORDERED: Potassium Phosphate Dibasic 30 MM in Dextrose 5% 500 ML IV STA (08:27)
[2025-02-03 10:01] VITALS: BP 111/87
[2025-02-03 10:22] LABS: Automated BF RBC Count 0.004 M/mm3 (0-0); Automated BF WBC Count 0.685 K/mm3 (0-999)
[2025-02-03 10:23] LABS: RBC Count, Body Fluid 4000 /mm3 (0-0)
[2025-02-03 10:35] LABS: Albumin, Body Fluid 0.8 g/dL
[2025-02-03 11:02] LABS: Color, Body Fluid Yellow (None-Yellow); Lymphocytes, Fluid 21.0 % (0.0-18.0); Monocytes/Mononuclear, Fluid 33.0 % (0.0-50.0); Neutrophils, Fluid 45.0 % (0.0-25.0); Total Cell Count, Body Fluid 100
[2025-02-03 15:07] VITALS: BP 111/80
--- NOTE | 2025-02-03 16:01 | NUR ---
SHIFT SUMMERY: PT A&OX4. FOLLOWS COMMANDS AND MAKES NEEDS KNOWN TO STAFF. PT HAS BEEN INDEPENDERNT IN THE ROOM AND STATES THAT HE HAS HAD A COUPLE OF BOWEL MOVEMENTS TODAY. PT HAS BEEN REFUSING LACTULOSE ALL SHIFT. PT DENIES ANY COMPLAINTS OF PAIN, CARDIAC PAIN, CHEST PRESSURE, TIGHTNESS OR SOB. PT WENT FOR A PARACENTESIS THIS AM WHERE THEY REMOVED 1.7L OF CLEMENTE COLORED FLUID. PT REPORTS ABD RELIEF POST PROCEDURE. PT RECIEVED A SHOWER THIS AFTERNOON. NS ON THE MONITOR. VSS. MAP >65. NO SIGNIFICANT EVENTS HAPPENED DURING THIS SHIFT. REPORT TO FRANCOIS SOLIS. PT TRANSFERED TO ROOM 334 VIA WHEELCHAIR BY RODRIGUEZ. BELONGINGS COLLECTED AND TAKEN WITH PT.
--- NOTE | 2025-02-03 16:55 | NUR ---
Report received at 1556 from WILL Botello in PCU. Patient arrived to room via wheelchair at 1615 and transferred self to bed without difficulty. Patient is alert and oriented x4; flat affect but responsive to questions. Patient with iv antibiotic hung per orders. Denies concerns or needs at this time. Will continue to monitor until report is given to oncoming manufacturing supervisor 2nd shift nurse.
[2025-02-03 19:47] VITALS: BP 120/82
--- NOTE | 2025-02-04 03:18 | NUR ---
SHIFT SUMMARY: PT AOX4. VSS. INDEPENDENT IN ROOM. BLOOD CULTURES ARE POSITIVE WITH GRAM + COCCI WITH CLUSTERS. PT DENIES CP/PRESSURE, OR DYSPNEA. CALL LIGHT IS WITHIN REACH. BED IS LOW AND LOCKED.
[2025-02-04 04:33] VITALS: BP 95/65
[2025-02-04 04:49] LABS: Hematocrit 33.8 % (37.0-53.0); Hemoglobin 10.9 g/dL (13.5-17.5); Mean Corpuscular HGB Conc 32.2 g/dL (31.5-36.5); Mean Corpuscular Volume 88 fL (80-100); NRBC ABSOLUTE 0.00 K/mm3 (0.00-0.02); NRBC Auto 0.0 /100 WBC (0.0-0.2); Platelet Count 65 K/mm3 (150-400); RDW Coefficient Variation 14.6 % (11.7-14.2); RDW Standard Deviation 46.3 fL (35.1-46.3)
[2025-02-04 05:11] LABS: Albumin, Blood 2.5 g/dL (3.4-5.0); Anion Gap 8 mmol/L (3-11); Blood Urea Nitrogen 14 mg/dL (8-24); CO2, Blood 28 mmol/L (21-32); Calcium, Blood 7.8 mg/dL (8.5-10.1); Chloride, Blood 102 mmol/L (98-108); Creatinine, Blood 0.57 mg/dL (0.60-1.20); Glucose, Blood 114 mg/dL (70-99); Phosphorus, Blood 3.1 mg/dL (2.5-4.9); Potassium, Blood 3.3 mmol/L (3.5-5.5); Sodium, Blood 135 mmol/L (136-145)
[2025-02-04 07:35] VITALS: BP 116/86
[2025-02-04] MEDS ORDERED: Enoxaparin 40 MG/0.4 ML SYR SC SCH (09:00)
[2025-02-04 11:42] VITALS: BP 106/77
[2025-02-04 15:59] VITALS: BP 111/78
--- NOTE | 2025-02-04 18:07 | NUR ---
END OF SHIFT REPORT: PATIENT IS ALERT AND ORIENTED X4; PLEASANT AND COOPERATIVE WITH CARE. PATIENT DENIES SOB, CP OR PRESSURE, N/V/D OR PAIN TODAY. ALL MEDICATIONS ADMINISTERED PER EMAR EXCEPT FOR LACTULOSE THAT HE REFUSES. PLAN DISCUSSED WITH PATIENT FOR DISCHARGE AFTER 5 DAYS OF ANTIBIOTIC THERAPY. PATIENT UTILIZES CALL LIGHT APPROPRIATELY; CALL LIGHT WITHIN REACH AND BED IN LOWEST POSITION. WILL CONTINUE TO MONTIOR UNTIL NEXT SHIFT NURSE ARRIVES AND REPORT IS GIVEN.
[2025-02-04 20:02] VITALS: BP 119/79
[2025-02-04 23:29] VITALS: BP 116/75
[2025-02-05] MEDS ORDERED: FentaNYL Citrate 50 MCG/ML 2 ML Injection IV PRN (00:55)
[2025-02-05 03:54] VITALS: BP 110/78
[2025-02-05 07:19] VITALS: BP 99/67
--- NOTE | 2025-02-05 07:20 | NUR ---
SHIFT SUMMARY PT C/O ABD + BACK PAIN, CALLED NOC HOSPITALIST WHO ORDERED PRN FENTANYL. GAVE ONE DOSE. PT REFUSE SCHEDULED LACTULOSE. HE IS AOX4, NO SIGNS OF CONFUSION OR DISORIENTATION. HE SLEPT WELL T/O MOST OF THE NIGHT.
[2025-02-05 08:27] VITALS: BP 102/76
[2025-02-05 09:37] LABS: Alanine Aminotransfer (ALT/SGP 120.0 U/L (12-78); Albumin, Blood 2.6 g/dL (3.4-5.0); Albumin/Globulin Ratio 0.7 (0.8-1.8); Anion Gap 8.0 mmol/L (3-11); Aspartate Aminotrans (AST/SGOT 31.0 U/L (12-37); Bilirubin, Total 3.6 mg/dL (0.1-1.0); Blood Urea Nitrogen 13.0 mg/dL (8-24); CO2, Blood 31.0 mmol/L (21-32); Calcium, Blood 8.2 mg/dL (8.5-10.1); Chloride, Blood 99.0 mmol/L (98-108); Creatinine, Blood 0.61 mg/dL (0.60-1.20); Globulin, Blood 3.7 g/dL (2.2-4.0); Glucose, Blood 116.0 mg/dL (70-99); Magnesium, Blood 1.8 mg/dL (1.6-2.4); Phosphorus, Blood 3.0 mg/dL (2.5-4.9); Potassium, Blood 3.3 mmol/L (3.5-5.5); Sodium, Blood 135.0 mmol/L (136-145); Total Protein, Blood 6.3 g/dL (6.4-8.2)
[2025-02-05 11:50] VITALS: BP 105/81
[2025-02-05 15:17] VITALS: BP 115/78
--- NOTE | 2025-02-05 17:14 | NUR ---
SHIFT SUMMARY: NO EVENTS OR CHANGES WITH THE PATIENT THROUGHOUT THE SHIFT. HE IS TO UNDERGO ANOTHER PARACENTESIS TOMORROW 02/06/25. HE IS INDEPENDENT, CALLS APPROPRIATELY, NO SIGNS OR SYMPTOMS OF DISTRESS, PLAN OF CARE ONGOING.
[2025-02-05] MEDS ORDERED: FentaNYL Citrate 50 MCG/ML 2 ML Injection IV ONE (17:30)
[2025-02-05 19:58] VITALS: BP 120/78
[2025-02-06 00:01] VITALS: BP 116/69
[2025-02-06 03:54] VITALS: BP 117/68
--- NOTE | 2025-02-06 04:17 | NUR ---
SHIFT SUMMARY PATIENT HAD NO ACUTE CHANGES. ALERT ORIENTED AND INDEPENDENT IN ROOM. DENIES CHEST PAIN, SOB, AND N/V. VSS/AFEBRILE. PIV INTACT. IV ABXS INFUSED. TELE MONITOR SR 102. REPORTS HE IS TIRED OF RECEIVING IV ABXS. SLEPT ON/OFF. CALL LIGHT IN REACH. BED IN LOWEST POSITION. WILL CONTINUE TO MONITOR UNTIL DAY SHIFT NURSE ASSUMES CARE.
[2025-02-06 05:30] LABS: Hematocrit 31.8 % (37.0-53.0); Hemoglobin 10.2 g/dL (13.5-17.5); Mean Corpuscular HGB Conc 32.1 g/dL (31.5-36.5); Mean Corpuscular Volume 89 fL (80-100); NRBC ABSOLUTE 0.00 K/mm3 (0.00-0.02); NRBC Auto 0.0 /100 WBC (0.0-0.2); Platelet Count 63 K/mm3 (150-400); RDW Coefficient Variation 15.0 % (11.7-14.2); RDW Standard Deviation 47.7 fL (35.1-46.3)
[2025-02-06 05:53] LABS: Anion Gap 7.0 mmol/L (3-11); Blood Urea Nitrogen 15.0 mg/dL (8-24); CO2, Blood 31.0 mmol/L (21-32); Calcium, Blood 8.4 mg/dL (8.5-10.1); Chloride, Blood 98.0 mmol/L (98-108); Creatinine, Blood 0.65 mg/dL (0.60-1.20); Glucose, Blood 127.0 mg/dL (70-99); Potassium, Blood 3.6 mmol/L (3.5-5.5); Sodium, Blood 132.0 mmol/L (136-145)
[2025-02-06 06:17] LABS: Prothrombin Time Results 13.0 Sec (9.7-11.5)
[2025-02-06 07:22] VITALS: BP 110/69
[2025-02-06 11:50] VITALS: BP 116/71
[2025-02-06] MEDS ORDERED: Ipratropium/Albuterol SulF 2.5-0.5MG/3 ML Amp INH STA (15:12)
[2025-02-06] MEDS ORDERED: Furosemide 10 MG / ML 2ML Vial IV STA (15:12)
[2025-02-06 15:20] VITALS: BP 113/77
--- NOTE | 2025-02-06 15:24 | NUR ---
SOB EPISODE- PT C/O BEING SOB. HE SAID "I JUST CAN'T CATCH MY BREATH" HE DID NOT APPEAR ANXIOUS, O2 SATS 94% ON ROOM AIR BUT RESP RATE WAS SHALLOW AND FAST 26-28 RESP PER MINUTE. PT WAS PLACED ON 2L O2 VIA NC RTO RELIEVE THE SOB NOTIFIED. RT CALLED, NO Tx ARE ORDERED. DR CAMRYN DUBOSEES, CALLED RT ONCE VERIFIED BY PHARMACY, NEW ORDER FOR IV LASIX. ALSO OF NOTE BLE +2-3 PITTING EDEMA. PT AND IS SOFT BUT DISTENDED AND THE LEFT UPPER QUAD IN HOLLOW ON PERCUSSION.
[2025-02-06] MEDS ORDERED: Ipratropium/Albuterol SulF 2.5-0.5MG/3 ML Amp INH SCH (16:00)
--- NOTE | 2025-02-06 17:10 | NUR ---
SHIFT SUMMARY- PT HAD AN EPISODE OF SOB THIS EVENING. NOTIFIED DR MARIE RECIEVED STAT IV LASIX (SBP 113) AND A BREATHING Tx. PT PLACED ON 2L TO HELP WITH THE SOB. THERE SEEMED TO BE NO CHANGE AT THE TIME OF THE EVENT. PT IIS BACK IN BED, NEFTALI LIGHT IN REACH NO S&S OF DISTRESS NOTED. PLAN IS FOR PARACENTESIS TOMORROW, IF IT CAN BE DONE SAFELY.
[2025-02-06 19:38] VITALS: BP 111/72
[2025-02-06] MEDS ORDERED: Ketorolac Tromethamine 15mg Vial IV PRN (22:10)
[2025-02-07 02:15] VITALS: BP 110/70
[2025-02-07 06:13] LABS: Alanine Aminotransfer (ALT/SGP 83.0 U/L (12-78); Albumin, Blood 2.6 g/dL (3.4-5.0); Albumin/Globulin Ratio 0.7 (0.8-1.8); Anion Gap 8.0 mmol/L (3-11); Aspartate Aminotrans (AST/SGOT 32.0 U/L (12-37); Bilirubin, Total 4.2 mg/dL (0.1-1.0); Blood Urea Nitrogen 15.0 mg/dL (8-24); CO2, Blood 30.0 mmol/L (21-32); Calcium, Blood 8.0 mg/dL (8.5-10.1); Chloride, Blood 98.0 mmol/L (98-108); Creatinine, Blood 0.75 mg/dL (0.60-1.20); Globulin, Blood 3.7 g/dL (2.2-4.0); Glucose, Blood 132.0 mg/dL (70-99); Potassium, Blood 3.0 mmol/L (3.5-5.5); Sodium, Blood 133.0 mmol/L (136-145); Total Protein, Blood 6.3 g/dL (6.4-8.2)
--- NOTE | 2025-02-07 06:53 | NUR ---
SHIFT SUMMARY AT START OF SHIFT, PT WALKING AROUND OUT OF ROOM. PT WEARING MASK WHILE NOT IN HIS ROOM. AFTER PT BACK IN ROOM, HE WAS COMPLAINING OF PAIN IN HIS LOW BACK. CALLED HOSPITALIST WHO ORDERED IV TORADOL Q6 15MG PRN FOR PAIN. PT HAPPY WITH THIS OPTION. AFTER MEDICATION GIVEN FOR PAIN AND HEATING PAD PUT UNDER HIS BACK, PT IS SLEEPING COMFORTABLY. PT WOKE ASKING FOR PAIN MEDS. MEDICATED PER EMAR.
[2025-02-07 08:25] VITALS: BP 103/71
[2025-02-07 14:12] VITALS: BP 106/73
[2025-02-07 14:17] LABS: Automated BF RBC Count 0.003 M/mm3 (0-0); Automated BF WBC Count 0.463 K/mm3 (0-999)
[2025-02-07 14:18] LABS: RBC Count, Body Fluid 3000 /mm3 (0-0)
[2025-02-07 15:10] LABS: Color, Body Fluid Yellow (None-Yellow); Eosinophils, Fluid 1.0 % (0.0-10.0); Lymphocytes, Fluid 13.0 % (0.0-18.0); Monocytes/Mononuclear, Fluid 75.0 % (0.0-50.0); Neutrophils, Fluid 11.0 % (0.0-25.0); Total Cell Count, Body Fluid 100
[2025-02-07] MEDS ORDERED: CIPR500 PO (15:51)
[2025-02-07] MEDS ORDERED: Enulose10 GM/15 M PO (15:51)
--- NOTE | 2025-02-07 16:19 | NUR ---
DISCHARGE PT DISCHARGED HOME. IV REMOVED AND SITE APPEARS WNL. TELE REMOVED/CLEANED AND SENT BACK TO PCU. DISCHARGE INSTRUCTIONS AND NEW MEDS REVIEWED WITH PT. NEW RX SENT TO [facility]. PT AMBULATED INDEPENDENTLY TO . RN WHEELED PT DOWN TO VEHICLE. PT REPORTS HAVING ALL BELONGINGS.
== END 2025-02-07 16:08 | disposition home or self-care (01) | DRG 871 ==
LOC: ER 00:55 → MEDS 12:46 → ICUE 12:46 → PCU 02-01 18:07 → MEDS 02-03 16:14
PROVIDERS: Internal Medicine; Internal Medicine Critical Care Medicine; Student in an Organized Health Care Education/Training Program; ADMIT Family Medicine
PROC: 3E03329 Introduction of Other Anti-infective into Peripheral Vein, Percutaneous Approach (ICD-10-PCS; principal; 2025-01-30)
PROC: 8E0ZXY6 Isolation (ICD-10-PCS; 2025-01-30)
PROC: 3E033XZ Introduction of Vasopressor into Peripheral Vein, Percutaneous Approach (ICD-10-PCS; 2025-01-30)
PROC: 30233J1 Transfusion of Nonautologous Serum Albumin into Peripheral Vein, Percutaneous Approach (ICD-10-PCS; 2025-01-30)
PROC: 02HV33Z Insertion of Infusion Device into Superior Vena Cava, Percutaneous Approach (ICD-10-PCS; 2025-01-30)
PROC: 0W9G3ZZ Drainage of Peritoneal Cavity, Percutaneous Approach (ICD-10-PCS; 2025-02-03)
PROC: 0W9G3ZZ Drainage of Peritoneal Cavity, Percutaneous Approach (ICD-10-PCS; 2025-02-07)
DX: A41.51 Sepsis due to Escherichia coli [E. coli] (principal); K65.2 Spontaneous bacterial peritonitis; R65.21 Severe sepsis with septic shock; U07.1 COVID-19; R57.1 Hypovolemic shock; K75.0 Abscess of liver; K76.6 Portal hypertension; E87.1 Hypo-osmolality and hyponatremia; R18.8 Other ascites; E89.6 Postprocedural adrenocortical (-medullary) hypofunction; E87.21 Acute metabolic acidosis; K76.82 Hepatic encephalopathy; K74.60 Unspecified cirrhosis of liver; D63.8 Anemia in other chronic diseases classified elsewhere; D50.9 Iron deficiency anemia, unspecified; F41.9 Anxiety disorder, unspecified; F90.9 Attention-deficit hyperactivity disorder, unspecified type; D69.6 Thrombocytopenia, unspecified; R74.01 Elevation of levels of liver transaminase levels; E83.39 Other disorders of phosphorus metabolism; E87.6 Hypokalemia; Z90.5 Acquired absence of kidney; Z87.891 Personal history of nicotine dependence; Z88.8 Allergy status to other drugs, medicaments and biological substances; Z79.899 Other long term (current) drug therapy; Z91.148 Patient's other noncompliance with medication regimen for other reason
CPT/HCPCS: 0528U; 36415; 49083; 71045; 71260; 74177; 76705; 80048; 80053; 80069; 80202; 82042; 82140; 82607; 82728; 82746; 82803; 83540; 83550; 83605; 83735; 83880; 84100; 84443; 84484; 85025; 85027; 85045; 85610; 87040; 87070; 87077; 87106; 87186; 87205; 87637; 88108; 88305; 89051; 93005; 93010; 93306; 94640; 94664; 94760; 96361; 96365; 96367; 96368; 96375; 96376; 99285-25; A9270; J0295; J0456; J1650; J1720; J1885; J1938; J2185; J2270; J2371; J2405; J2543; J3010; J3360; J3373; J3480; J7030; J7040; J7050; J7060; J7120; P9047; Q9967

== ENCOUNTER 2025-04-05 07:30 | Emergency (ER) | payer OTHER ==
[~2025-04-05] VITALS: Ht 188 cm; Wt 95.2 kg
[~2025-04-05 07:30] MED LIST changes: +CIPR500 PO; +Enulose10 GM/15 M PO
[2025-04-05 08:33] LABS: BASOPHILS ABSOLUTE AUTO 0.03 K/mm3 (0.00-0.23); BASOPHILS PERCENT AUTO 1 % (0-2); EOSINOPHILS ABSOLUTE AUTO 0.22 K/mm3 (0.00-0.68); EOSINOPHILS PERCENT AUTO 6 % (0-6); Hematocrit 35.4 % (37.0-53.0); Hemoglobin 11.5 g/dL (13.5-17.5); IMMATURE GRAN ABSOLUTE AUTO 0.02 K/mm3 (0.00-0.10); IMMATURE GRAN PERCENT AUTO 1 % (0-1); LYMPHOCYTES ABSOLUTE AUTO 0.49 K/mm3 (0.84-5.20); LYMPHOCYTES PERCENT AUTO 12 % (21-46); MONOCYTES ABSOLUTE AUTO 0.42 K/mm3 (0.16-1.47); MONOCYTES PERCENT AUTO 11 % (4-13); Mean Corpuscular HGB Conc 32.5 g/dL (31.5-36.5); Mean Corpuscular Volume 89 fL (80-100); NEUTROPHILS ABSOLUTE AUTO 2.82 K/mm3 (1.96-9.15); NEUTROPHILS PERCENT AUTO 70 % (41-73); NRBC ABSOLUTE 0.00 K/mm3 (0.00-0.02); NRBC Auto 0.0 /100 WBC (0.0-0.2); Platelet Count 116 K/mm3 (150-400); RDW Coefficient Variation 13.5 % (11.7-14.2); RDW Standard Deviation 43.7 fL (35.1-46.3)
[2025-04-05 08:54] LABS: Alanine Aminotransfer (ALT/SGP 25.0 U/L (12-78); Albumin, Blood 2.8 g/dL (3.4-5.0); Albumin/Globulin Ratio 0.6 (0.8-1.8); Anion Gap 8.0 mmol/L (3-11); Aspartate Aminotrans (AST/SGOT 33.0 U/L (12-37); Bilirubin, Total 1.7 mg/dL (0.1-1.0); Blood Urea Nitrogen 11.0 mg/dL (8-24); CO2, Blood 27.0 mmol/L (21-32); Calcium, Blood 8.7 mg/dL (8.5-10.1); Chloride, Blood 102.0 mmol/L (98-108); Creatinine, Blood 0.93 mg/dL (0.60-1.20); Globulin, Blood 4.5 g/dL (2.2-4.0); Glucose, Blood 136.0 mg/dL (70-99); Potassium, Blood 3.3 mmol/L (3.5-5.5); Sodium, Blood 134.0 mmol/L (136-145); Total Protein, Blood 7.3 g/dL (6.4-8.2)
[2025-04-05 09:37] LABS: Prothrombin Time Results 12.9 Sec (9.7-11.5)
[2025-04-05] MEDS ORDERED: Albumin (Human) 25gm/100ml 100 ML IV ONE (11:45)
[2025-04-05 12:03] LABS: Automated BF RBC Count 0.003 M/mm3 (0-0); Automated BF WBC Count 0.290 K/mm3 (0-999)
[2025-04-05 12:04] LABS: RBC Count, Body Fluid 3000 /mm3 (0-0)
[2025-04-05] MEDS ORDERED: NS 500 ML IV SCH (12:45)
[2025-04-05 13:58] LABS: Lymphocytes, Fluid 47.0 % (0.0-18.0); Monocytes/Mononuclear, Fluid 33.0 % (0.0-50.0); Neutrophils, Fluid 7.0 % (0.0-25.0); Total Cell Count, Body Fluid 100
[2025-04-05 13:59] LABS: Color, Body Fluid Yellow (None-Yellow)
== END 2025-04-05 13:44 | disposition home or self-care (01) ==
LOC: ER 07:30
PROVIDERS: Physician Assistant; Student in an Organized Health Care Education/Training Program
DX: R18.8 Other ascites (principal); R10.9 Unspecified abdominal pain; Z88.8 Allergy status to other drugs, medicaments and biological substances; Z79.899 Other long term (current) drug therapy
CPT/HCPCS: 49083; 71046; 80053; 83690; 83880; 85025; 85610; 89051; 99284-25; P9047

== ENCOUNTER 2025-04-25 13:09 | Emergency (ER) | payer OTHER ==
[~2025-04-25] VITALS: Ht 188 cm; Wt 90.7 kg
[2025-04-25 14:11] LABS: BASOPHILS ABSOLUTE AUTO 0.06 K/mm3 (0.00-0.23); BASOPHILS PERCENT AUTO 1 % (0-2); EOSINOPHILS ABSOLUTE AUTO 0.31 K/mm3 (0.00-0.68); EOSINOPHILS PERCENT AUTO 6 % (0-6); Hematocrit 36.7 % (37.0-53.0); Hemoglobin 12.0 g/dL (13.5-17.5); IMMATURE GRAN ABSOLUTE AUTO 0.01 K/mm3 (0.00-0.10); IMMATURE GRAN PERCENT AUTO 0 % (0-1); LYMPHOCYTES ABSOLUTE AUTO 0.34 K/mm3 (0.84-5.20); LYMPHOCYTES PERCENT AUTO 7 % (21-46); MONOCYTES ABSOLUTE AUTO 0.45 K/mm3 (0.16-1.47); MONOCYTES PERCENT AUTO 9 % (4-13); Mean Corpuscular HGB Conc 32.7 g/dL (31.5-36.5); Mean Corpuscular Volume 85 fL (80-100); NEUTROPHILS ABSOLUTE AUTO 4.03 K/mm3 (1.96-9.15); NEUTROPHILS PERCENT AUTO 77 % (41-73); NRBC ABSOLUTE 0.00 K/mm3 (0.00-0.02); NRBC Auto 0.0 /100 WBC (0.0-0.2); Platelet Count 105 K/mm3 (150-400); RDW Coefficient Variation 13.6 % (11.7-14.2); RDW Standard Deviation 42.2 fL (35.1-46.3)
[2025-04-25 14:20] LABS: Prothrombin Time Results 12.8 Sec (9.7-11.5)
[2025-04-25 14:41] LABS: Alanine Aminotransfer (ALT/SGP 25.0 U/L (12-78); Albumin, Blood 3.0 g/dL (3.4-5.0); Albumin/Globulin Ratio 0.6 (0.8-1.8); Anion Gap 9.0 mmol/L (3-11); Aspartate Aminotrans (AST/SGOT 27.0 U/L (12-37); Bilirubin, Total 3.2 mg/dL (0.1-1.0); Blood Urea Nitrogen 11.0 mg/dL (8-24); CO2, Blood 29.0 mmol/L (21-32); Calcium, Blood 8.5 mg/dL (8.5-10.1); Chloride, Blood 99.0 mmol/L (98-108); Creatinine, Blood 0.66 mg/dL (0.60-1.20); Globulin, Blood 4.9 g/dL (2.2-4.0); Glucose, Blood 92.0 mg/dL (70-99); Potassium, Blood 2.7 mmol/L (3.5-5.5); Sodium, Blood 134.0 mmol/L (136-145); Total Protein, Blood 7.9 g/dL (6.4-8.2)
[2025-04-25] MEDS ORDERED: Furosemide 10 MG / ML 2ML Vial IV ONE (15:05)
[2025-04-26] MEDS ORDERED: HYDROCODONE-AC1 EA10 PO (11:15)
== END 2025-04-25 18:10 | disposition home or self-care (01) ==
LOC: ER 13:09
PROVIDERS: Emergency Medicine
DX: R18.8 Other ascites (principal); R30.0 Dysuria; Z88.8 Allergy status to other drugs, medicaments and biological substances; Z79.899 Other long term (current) drug therapy
CPT/HCPCS: 71045; 80053; 85025; 85610; 93005; 93010; 96374; 99284-25; J1938

== ENCOUNTER 2025-04-26 07:26 | Emergency (ER) | payer OTHER ==
[~2025-04-26] VITALS: Ht 177.8 cm; Wt 77.1 kg
[2025-04-26] MEDS ORDERED: HYDROCODONE-AC1 EA10 PO (11:15)
== END 2025-04-26 11:25 | disposition home or self-care (01) ==
LOC: ER 07:26
DX: R18.8 Other ascites (principal); Z88.8 Allergy status to other drugs, medicaments and biological substances; Z79.899 Other long term (current) drug therapy
CPT/HCPCS: 49083; 93005; 93010; 99284-25